=== PATIENT | male | born 1975 | race Two or more races ===

== ENCOUNTER 2018-10-11 05:42 | Day surgery (SDC) | payer OTHER ==
[2018-10-11] MEDS ORDERED: LACTATED RINGER'S 1,000 ML IV (07:00)
[2018-10-11] MEDS ORDERED: FENTAnyl 50 MCG/ML VIAL ×2 (07:36→07:59)
[2018-10-11] MEDS ORDERED: MIDAZOLAM 1 MG/ML 2 ML INJ (07:36)
[2018-10-11] MEDS ORDERED: ROPIVACAINE 0.5 % 30 ML VIAL (07:37)
[2018-10-11] MEDS: ROPIVACAINE 0.5 % 30 ML VIAL (08:59)
[2018-10-11] MEDS: POLYMYXIN/BACITRACIN 1L IRRIG (08:59)
[2018-10-11] MEDS: BACITRACIN/POLYMYXIN 28.35 GM OINT TOP (08:59)
[2018-10-11] MEDS ORDERED: CEFAZOLIN 1 GM INJ (09:37)
[2018-10-11] MEDS ORDERED: PROPOFOL 20 ML (09:37)
[2018-10-11] MEDS ORDERED: SUCCINYLCHOLINE CHLORIDE 100 MG/5 ML SYG IV (09:37)
[2018-10-11] MEDS ORDERED: ROCURONIUM 50 MG INJ (09:37)
[2018-10-11] MEDS ORDERED: LIDOCAINE 100 MG SYRINGE (09:37)
[2018-10-11] MEDS ORDERED: SUGAMMADEX SODIUM 200 MG/2 ML VIAL IV (10:14)
[2018-10-11] MEDS ORDERED: ALBUTEROL 0.083% (NEB) 2.5 MG/3 ML AMP HHN (11:00)
[2018-10-11] MEDS ORDERED: MEPERIDINE 25 MG INJ IV (11:00)
[2018-10-11] MEDS ORDERED: METOCLOPRAMIDE 10 MG INJ IV (11:00)
[2018-10-11] MEDS ORDERED: FENTAnyl 50 MCG/ML VIAL IV ×3 (11:00)
[2018-10-11] MEDS ORDERED: HYDROmorphONE 1 MG/5 ML IV SYRINGE IV ×2 (11:00)
[2018-10-11] MEDS ORDERED: DIPHENHYDRAMINE 50 MG INJ IV (11:00)
[2018-10-11] MEDS: HYDROmorphONE 1 MG/5 ML IV SYRINGE IV (11:10)
[2018-10-11] MEDS: ONDANSETRON 4 MG INJ IV (11:11)
[2018-10-11] MEDS: KETOROLAC 30 MG INJ IV (11:22)
[2018-10-11] MEDS ORDERED: morphine 2 MG INJ IV (11:30)
[2018-10-11] MEDS ORDERED: ACETAMINOPHEN 325 MG TAB PO (11:30)
== END 2018-10-11 12:38 | disposition home or self-care (01) ==
LOC: SDS 05:42
DX: S83.511D Sprain of anterior cruciate ligament of right knee, subsequent encounter (principal); X58.XXXD Exposure to other specified factors, subsequent encounter; S83.281D Other tear of lateral meniscus, current injury, right knee, subsequent encounter; M94.261 Chondromalacia, right knee
CPT/HCPCS: 29881; 82306